=== PATIENT | female | born 1950 | race Caucasian/White ===

== ENCOUNTER → 2021-07-03 | Outpatient (CLI) | payer OTHER ==
[~2021-07-03] MED LIST: ALDACTONE 25MG25 MG PO; ALL DAY ALLERGY10 M2 PO; ASPIR 8181 MG PO; HYGROTON TAB 2525 MG PO; JANUVIA100 MG PO; LIPITOR TAB 1010 MG PO; MELATONIN5 MG PO; NEXIUM40 MG PO; NORVASC10 MG PO; OZEMPIC0.25 MG/0. SQ; SYNTHROID75 MCG PO; TYLENOL 500 MG500 MG PO; VITAMIN D PO
== END ==
LOC: CT 12:24
DX: K43.9 Ventral hernia without obstruction or gangrene (principal); K21.9 Gastro-esophageal reflux disease without esophagitis; E11.9 Type 2 diabetes mellitus without complications; R10.2 Pelvic and perineal pain; K57.30 Diverticulosis of large intestine without perforation or abscess without bleeding
CPT/HCPCS: Q9967